=== PATIENT | female | born 1990 | race Caucasian/White ===

== ENCOUNTER 2016-06-02 10:12 | Emergency (ER) | payer BC, OTHER ==
[~2016-06-02 10:12] MED LIST: IBUP80TA PO; PERCOCET PO; PRENTAB9 PO; VENTAER INH
[2016-06-02] MEDS ORDERED: IBUPROFEN 800 MG TAB As Ordered ONE (11:02)
--- NOTE | 2016-06-02 11:50 | REP ---
Clinical: Trauma . Technique: AP, lateral, bilateral oblique views. Findings: No acute fracture or dislocation. Skeletal structures and joint spaces are intact and normal. Ankle mortise appears stable. No subcutaneous emphysema or radiodense foreign body. Impression: Normal left ankle radiograph series. Signed by Gabriel Kim MD 06/02/2016 11:42 A
--- NOTE | 2016-06-02 11:51 | REP ---
Clinical: Trauma. Technique: AP, lateral, bilateral oblique and sunrise views left knee . Findings: The osseous structures and joint spaces are intact and normal. There is no evidence for acute fracture or dislocation. No joint effusion is appreciated. Surrounding soft tissues are unremarkable. No subcutaneous emphysema or radiodense foreign body. Impression: Normal examination. No acute fracture or dislocation. Signed by Gabriel Kim MD 06/02/2016 11:42 A
--- NOTE | 2016-06-02 12:17 | EDDOCDS ---
Physician Documentation [facility] Name: Teresita Pettit Age: 26 yrs Sex: Female : 1990 Arrival Date: 06/02/2016 Time: 10:12 Bed TR8 Private MD: Chiara Lawler Disposition: 06/02/16 12:09 Discharged to Home/Self Care. Impression: Sprain of unspecified ligament of left ankle, Sprain of unspecified site of left knee. - Condition is Stable. - Discharge Instructions: Ankle Sprain, Rbys-ju-Abgx, Knee Sprain, Sqra-sb-Kbgn. - Prescriptions for Mobic 7.5 mg Oral Tablet - take 1 tablet by ORAL route once daily take with food; 20 tablet. - Medication Reconciliation, Work Release Form - 5 day, Local Pharmacy Hours form. - Follow up: [facility]; When: 1 - 2 days; Reason: Further diagnostic work-up, Recheck today's complaints, Continuance of care. Follow up: Emergency Department; Reason: Worsening of conditions. - Problem is new. - Symptoms have improved. Historical: - Allergies: no known allergies; - Home Meds: 1. nuvaring daily - PMHx: Asthma; Palpitations; Seasonal Allergies; - PSHx: ; - Social history: Smoking status: Patient states was never smoker of tobacco. No barriers to communication noted, The patient speaks fluent Tajik. - Family history: Not pertinent. - : The pt / caregiver states he / she is not on anticoagulants. Home medication list is obtained from the patient. - Exposure Risk Screening:: None identified. 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 8 in. (172.72 cm) (R); Pain 5/10; 12:06 BP 136 / 97; Pulse 85; Resp 18; Temp 97.7; Pulse Ox 98% on R/A; Pain 3/10; rn1 10:15 Body Mass Index 29.80 (88.90 kg, 172.72 cm) sar1 Procedures: 12:08 Fracture care/splinting: Splint applied to left lateral ankle using Air Cast, applied ef1 by nurse. Examined by me, post splint application: neurovascular intact, 2+ distal pulses palpable, brisk capillary refill noted, Patient tolerated well. MDM: 11:00 Ibuprofen 800 mg PO once ordered. ef1 11:00 Ice Pack ordered. ef1 11:02 Knee, Complete Ordered. EDMS 11:02 Ankle, Complete Ordered. EDMS 11:07 [facility] Payment Agreement was scanned into [employer] and attached to record. jp5 11:07 Financial registration complete. jp5 11:57 Apply Air Cast to Patient. ordered. ef1 11:57 Crutches ordered. ef1 Administered Medications: 11:09 Drug: Ibuprofen 800 mg [ibuprofen 800 mg tablet (1 tabs)] Route: PO; mlb1 12:09 Follow up: Response: No Adverse Reaction ms18 Signatures: Dispatcher [employer] EDSC Pravin Jacobsen RN RN po Radha Rothman PA-C PA-C ef1 Gracie Bryant RN RN ms18 Tom Riley jp5 Gilberto Robledo RN mlb1 The chart was reviewed and I authenticate all verbal orders and agree with the evaluation and treatment provided.Attachments: 11:07 [facility] Payment Agreement jp5 MTDD
--- NOTE | 2016-06-02 12:17 | EDDOCDS ---
Nurse's Notes [facility] Name: Teresita Pettit Age: 26 yrs Sex: Female : 1990 Arrival Date: 06/02/2016 Time: 10:12 Bed TR8 Private MD: Chiara Lawler Diagnosis: Sprain of unspecified ligament of left ankle;Sprain of unspecified site of left knee Presentation: 06/02 10:18 Presenting complaint: Patient states: slipped on ice and twisted left ankle. Adult po Sepsis Screening: The patient does not have new or worsening altered mentation. Patient's respiratory rate is less than 22. Systolic blood pressure is greater than 100. Patient has a qSOFA score of 0- Negative Sepsis Screen. Suicide/Homicide risk assessment- the patient denies having any suicidal and/or homicidal ideations and does not present with any other emotional, behavioral or mental health complaints. Status: Patient is not a human services care specialist or dependent. Transition of care: patient was not received from another setting of care. 10:18 Acuity: AXEL Level 4 po 10:18 Method Of Arrival: Walkin/Carried/Asstd po Triage Assessment: 10:20 General: Appears in no apparent distress, comfortable, Behavior is appropriate for age, po cooperative. Pain: Location: left lateral ankle Pain currently is 5 out of 10 on a pain scale. Quality of pain is described as aching, Is continuous Aggravated by weight bearing. HIV screening NA for this visit Offered previously. Neurological: Level of Consciousness is awake, alert, Oriented to person, place, time. Respiratory: Airway is patent Respiratory effort is even, unlabored. Musculoskeletal: Denies weakness, numbness. 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 nuvaring daily - PMHx: Asthma; Palpitations; Seasonal Allergies; - PSHx: ; - Social history: Smoking status: Patient states was never smoker of tobacco. No barriers to communication noted, The patient speaks fluent Macanese. - Family history: Not pertinent. - : The pt / caregiver states he / she is not on anticoagulants. Home medication list is obtained from the patient. - Exposure Risk Screening:: None identified. Screenin:14 Screening information is obtained from the patient. Fall risk: No risks identified. ms18 Assistance ADL's: requires no assistance with activities of daily living. Abuse/DV Screen: The patient / caregiver reports he/she is: not in a situation that causes fear, pain or injury. Nutritional screening: No deficits noted. Advance Directives: There is no living will. home support is adequate. Assessment: 12:14 General: Appears in no apparent distress, comfortable, well nourished, well groomed, ms18 Behavior is appropriate for age, cooperative, pleasant. Pain: Location: left knee and anterior aspect of left ankle Pain currently is 3 out of 10 on a pain scale. Neurological: No deficits noted. Respiratory: Airway is patent Respiratory effort is even, unlabored. Derm: Skin is pink, warm & dry. Vital Signs: 10:15 BP 147 / 88; Pulse 84; Resp 18; Temp 96.7(O); Pulse Ox 99% on R/A; Weight 88.9 kg (R); sar1 Height 5 ft. 8 in. (172.72 cm) (R); Pain 5/10; 12:06 BP 136 / 97; Pulse 85; Resp 18; Temp 97.7; Pulse Ox 98% on R/A; Pain 3/10; rn1 10:15 Body Mass Index 29.80 (88.90 kg, 172.72 cm) [facility] Vitals: 10:15 Log In Time: June 02, 2016 at 10:15. [facility] ED Course: 10:13 Patient visited by Carley Bliss, Emt [facility]. sar1 10:13 Patient moved to Waiting sar1 10:14 Chiara Lawler DO is Private Physician. sar1 10:16 Patient moved to Pre RCE sar1 10:20 Triage Initiated po 10:20 Arm band placed on right wrist. Patient placed in waiting room. Family accompanied po patient. 10:23 Patient visited by Pravin Jacobsen RN. po 10:32 Patient moved to Triage 2 mlb1 10:42 Radha Rothman PA-C is PHCP. ef1 10:42 Sissy Leslie MD is Attending Physician. ef1 10:42 Patient visited by Radha Rothman PA-C. ef1 11:07 [facility] Payment Agreement was scanned into [email or web address] and attached to record. jp5 11:09 Patient moved to TR2 mlb1 11:26 Patient visited by Radha Rothman PA-C. ef1 11:56 Patient visited by Radha Rothman PA-C. ef1 11:58 Patient moved to PR1 / 25 ms18 12:08 Orthopaedics, [facility] is Referral Physician. ef1 12:14 Patient moved to TR8 ms18 12:14 The patient / caregiver is instructed regarding the plan of care and ED course. ms18 Accompanied by Family Member, Patient has correct armband on for positive identification. Property :Personal belongings accompany Pt. 12:14 No IV's were initiated during this patient's visit. No procedures done that require ms18 assistance. 12:14 Air stirrup applied to left ankle Patient with positive distal sensation and brisk ms18 distal capillary refill after application. 12:16 Ankle, Complete Returned. EDMS 12:17 Knee, Complete Returned. EDMS Administered Medications: 11:09 Drug: Ibuprofen 800 mg [ibuprofen 800 mg tablet (1 tabs)] Route: PO; mlb1 12:09 Follow up: Response: No Adverse Reaction ms18 Order Results: Radiology Order: Knee, Complete Test: Knee, Complete REASON FOR EXAMINATION: Trauma; Clinical: Trauma.; ; Technique: AP, lateral, bilateral oblique and sunrise views left knee .; ; Findings: The osseous structures and joint spaces are intact and normal. There; is no evidence for acute fracture or dislocation. No joint effusion is; appreciated. Surrounding soft tissues are unremarkable. No subcutaneous; emphysema or radiodense foreign body.; ; Impression:; Normal examination. No acute fracture or dislocation.; ; ; Signed by; Gabriel Kim MD 06/02/2016 11:42 A; Radiology Order: Ankle, Complete Test: Ankle, Complete REASON FOR EXAMINATION: Trauma; Clinical: Trauma .; ; Technique: AP, lateral, bilateral oblique views.; ; Findings: No acute fracture or dislocation. Skeletal structures and joint; spaces are intact and normal. Ankle mortise appears stable. No subcutaneous; emphysema or radiodense foreign body.; ; Impression:; Normal left ankle radiograph series.; ; ; Signed by; Gabriel Kim MD 06/02/2016 11:42 A; Outcome: 12:09 Discharge ordered by Provider. ef1 12:14 Discharge Assessment: Patient awake, alert and oriented x 3. No cognitive and/or ms18 functional deficits noted. Patient verbalized understanding of disposition instructions. patient administered narcotics - no. The following High Risk Discharge criteria are identified: None. Discharged to home ambulatory, with crutches, with family. Condition: good Condition: stable Condition: improved. Discharge instructions given to patient, Instructed on discharge instructions, follow up and referral plans. medication usage, Rest, Ice, Compression and Elevation. crutch walking, Demonstrated understanding of instructions, crutch walking, medications, Pt was receptive of discharge instructions/ teaching. Prescriptions given X 1, Work note provided to patient. No special radiology studies were completed. 12:17 Patient left the ED. ms18 Signatures: Dispatcher [employer] EDMS Pravin Jacobsen,RN RN Gilberto Davila RN RN mlb1 Radha Rothman, PA-C PALd efGracie Jordan,RN RN ms18 Carley Bliss, [facility] sar1 Gurpreet, Michele rn1 Tom Riley jp5 KAT
--- NOTE | 2016-06-04 13:17 | EDDOCDS ---
Physician Documentation [facility] Name: Teresita Pettit Age: 26 yrs Sex: Female : 1990 Arrival Date: 06/02/2016 Time: 10:12 Bed TR8 Private MD: Chiara Lawler Disposition: 06/02/16 12:09 Discharged to Home/Self Care. Impression: Sprain of unspecified ligament of left ankle, Sprain of unspecified site of left knee. - Condition is Stable. - Discharge Instructions: Ankle Sprain, Ldye-kr-Ohvs, Knee Sprain, Widd-va-Aivk. - Prescriptions for Mobic 7.5 mg Oral Tablet - take 1 tablet by ORAL route once daily take with food; 20 tablet. - Medication Reconciliation, Work Release Form - 5 day, Local Pharmacy Hours form. - Follow up: [facility]; When: 1 - 2 days; Reason: Further diagnostic work-up, Recheck today's complaints, Continuance of care. Follow up: Emergency Department; Reason: Worsening of conditions. - Problem is new. - Symptoms have improved. Historical: - Allergies: no known allergies; - Home Meds: 1. nuvaring daily - PMHx: Asthma; Palpitations; Seasonal Allergies; - PSHx: ; - Social history: Smoking status: Patient states was never smoker of tobacco. No barriers to communication noted, The patient speaks fluent Montserratian. - Family history: Not pertinent. - : The pt / caregiver states he / she is not on anticoagulants. Home medication list is obtained from the patient. - Exposure Risk Screening:: None identified. 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 8 in. (172.72 cm) (R); Pain 5/10; 12:06 BP 136 / 97; Pulse 85; Resp 18; Temp 97.7; Pulse Ox 98% on R/A; Pain 3/10; rn1 10:15 Body Mass Index 29.80 (88.90 kg, 172.72 cm) sar1 Procedures: 12:08 Fracture care/splinting: Splint applied to left lateral ankle using Air Cast, applied ef1 by nurse. Examined by me, post splint application: neurovascular intact, 2+ distal pulses palpable, brisk capillary refill noted, Patient tolerated well. MDM: 11:00 Ibuprofen 800 mg PO once ordered. ef1 11:00 Ice Pack ordered. ef1 11:02 Knee, Complete Ordered. EDMS 11:02 Ankle, Complete Ordered. EDMS 11:07 [facility] Payment Agreement was scanned into [employer] and attached to record. jp5 11:07 Financial registration complete. jp5 11:57 Apply Air Cast to Patient. ordered. ef1 11:57 Crutches ordered. ef1 17:10 T-Sheet-- Draft Copy was scanned into [employer] and attached to record. klr 06/03 11:35 Radiology Report was scanned into [employer] and attached to record. gb Administered Medications: 06/02 11:09 Drug: Ibuprofen 800 mg [ibuprofen 800 mg tablet (1 tabs)] Route: PO; mlb1 12:09 Follow up: Response: No Adverse Reaction ms18 Signatures: Dispatcher [employer] EDPravin Chand,RN RN po Velia Alaniz, Reg Reg gb Radha Rothman, PABalajiC PALd ef1 Gracie Bryant,RN RN ms18 Tom Riley jp5 Chelsea Linares Michael B RN mlb1 The chart was reviewed and I authenticate all verbal orders and agree with the evaluation and treatment provided.Attachments: : [facility] Payment Agreement jp5 17:10 T-Sheet-- Draft Copy klr Chart Complete MTDD
--- NOTE | 2016-06-04 13:17 | EDDOCDS ---
Physician Documentation [facility] Name: Teresita Pettit Age: 26 yrs Sex: Female : 1990 Arrival Date: 06/02/2016 Time: 10:12 Bed TR8 Private MD: Chiara Lawler Disposition: 06/02/16 12:09 Discharged to Home/Self Care. Impression: Sprain of unspecified ligament of left ankle, Sprain of unspecified site of left knee. - Condition is Stable. - Discharge Instructions: Ankle Sprain, Hryo-bs-Vejw, Knee Sprain, Uvtp-hf-Qdle. - Prescriptions for Mobic 7.5 mg Oral Tablet - take 1 tablet by ORAL route once daily take with food; 20 tablet. - Medication Reconciliation, Work Release Form - 5 day, Local Pharmacy Hours form. - Follow up: [facility]; When: 1 - 2 days; Reason: Further diagnostic work-up, Recheck today's complaints, Continuance of care. Follow up: Emergency Department; Reason: Worsening of conditions. - Problem is new. - Symptoms have improved. Historical: - Allergies: no known allergies; - Home Meds: 1. nuvaring daily - PMHx: Asthma; Palpitations; Seasonal Allergies; - PSHx: ; - Social history: Smoking status: Patient states was never smoker of tobacco. No barriers to communication noted, The patient speaks fluent Moldovan. - Family history: Not pertinent. - : The pt / caregiver states he / she is not on anticoagulants. Home medication list is obtained from the patient. - Exposure Risk Screening:: None identified. 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 8 in. (172.72 cm) (R); Pain 5/10; 12:06 BP 136 / 97; Pulse 85; Resp 18; Temp 97.7; Pulse Ox 98% on R/A; Pain 3/10; rn1 10:15 Body Mass Index 29.80 (88.90 kg, 172.72 cm) sar1 Procedures: 12:08 Fracture care/splinting: Splint applied to left lateral ankle using Air Cast, applied ef1 by nurse. Examined by me, post splint application: neurovascular intact, 2+ distal pulses palpable, brisk capillary refill noted, Patient tolerated well. MDM: 11:00 Ibuprofen 800 mg PO once ordered. ef1 11:00 Ice Pack ordered. ef1 11:02 Knee, Complete Ordered. EDMS 11:02 Ankle, Complete Ordered. EDMS 11:07 [facility] Payment Agreement was scanned into [email or web address] and attached to record. jp5 11:07 Financial registration complete. jp5 11:57 Apply Air Cast to Patient. ordered. ef1 11:57 Crutches ordered. ef1 17:10 T-Sheet-- Draft Copy was scanned into [email or web address] and attached to record. klr 06/03 11:35 Radiology Report was scanned into [email or web address] and attached to record. gb Administered Medications: 06/02 11:09 Drug: Ibuprofen 800 mg [ibuprofen 800 mg tablet (1 tabs)] Route: PO; mlb1 12:09 Follow up: Response: No Adverse Reaction ms18 Signatures: Dispatcher [employer] EDPravin Chand,RN RN po Velia Alaniz, Reg Reg gb Radha Rothman, PABalajiC PALd ef1 Gracie Bryant,RN RN ms18 Tom Riley jp5 Chelsea Linares Michael B RN mlb1 The chart was reviewed and I authenticate all verbal orders and agree with the evaluation and treatment provided.Attachments: : [facility] Payment Agreement jp5 17:10 T-Sheet-- Draft Copy klr Chart Complete MTDD
--- NOTE | 2016-06-04 13:17 | EDDOCDS ---
Nurse's Notes [facility] Name: Teresita Pettit Age: 26 yrs Sex: Female : 1990 Arrival Date: 06/02/2016 Time: 10:12 Bed TR8 Private MD: Chiara Lawler Diagnosis: Sprain of unspecified ligament of left ankle;Sprain of unspecified site of left knee Presentation: 06/02 10:18 Presenting complaint: Patient states: slipped on ice and twisted left ankle. Adult po Sepsis Screening: The patient does not have new or worsening altered mentation. Patient's respiratory rate is less than 22. Systolic blood pressure is greater than 100. Patient has a qSOFA score of 0- Negative Sepsis Screen. Suicide/Homicide risk assessment- the patient denies having any suicidal and/or homicidal ideations and does not present with any other emotional, behavioral or mental health complaints. Status: Patient is not a business services analyst or dependent. Transition of care: patient was not received from another setting of care. 10:18 Acuity: AXEL Level 4 po 10:18 Method Of Arrival: Walkin/Carried/Asstd po Triage Assessment: 10:20 General: Appears in no apparent distress, comfortable, Behavior is appropriate for age, po cooperative. Pain: Location: left lateral ankle Pain currently is 5 out of 10 on a pain scale. Quality of pain is described as aching, Is continuous Aggravated by weight bearing. HIV screening NA for this visit Offered previously. Neurological: Level of Consciousness is awake, alert, Oriented to person, place, time. Respiratory: Airway is patent Respiratory effort is even, unlabored. Musculoskeletal: Denies weakness, numbness. MANAGER DIGITAL AD OPERATIONS: 10:20 LMP 05/07/2016 po Historical: - Allergies: no known allergies; - Home Meds: 1. nuvaring daily - PMHx: Asthma; Palpitations; Seasonal Allergies; - PSHx: ; - Social history: Smoking status: Patient states was never smoker of tobacco. No barriers to communication noted, The patient speaks fluent [place]. - Family history: Not pertinent. - : The pt / caregiver states he / she is not on anticoagulants. Home medication list is obtained from the patient. - Exposure Risk Screening:: None identified. Screenin:14 Screening information is obtained from the patient. Fall risk: No risks identified. ms18 Assistance ADL's: requires no assistance with activities of daily living. Abuse/DV Screen: The patient / caregiver reports he/she is: not in a situation that causes fear, pain or injury. Nutritional screening: No deficits noted. Advance Directives: There is no living will. home support is adequate. Assessment: 12:14 General: Appears in no apparent distress, comfortable, well nourished, well groomed, ms18 Behavior is appropriate for age, cooperative, pleasant. Pain: Location: left knee and anterior aspect of left ankle Pain currently is 3 out of 10 on a pain scale. Neurological: No deficits noted. Respiratory: Airway is patent Respiratory effort is even, unlabored. Derm: Skin is pink, warm & dry. Vital Signs: 10:15 BP 147 / 88; Pulse 84; Resp 18; Temp 96.7(O); Pulse Ox 99% on R/A; Weight 88.9 kg (R); sar1 Height 5 ft. 8 in. (172.72 cm) (R); Pain 5/10; 12:06 BP 136 / 97; Pulse 85; Resp 18; Temp 97.7; Pulse Ox 98% on R/A; Pain 3/10; rn1 10:15 Body Mass Index 29.80 (88.90 kg, 172.72 cm) [facility] Vitals: 10:15 Log In Time: June 02, 2016 at 10:15. [facility] ED Course: 10:13 Patient visited by Carley Bliss, Aircraft Restorer. sar1 10:13 Patient moved to Waiting sar1 10:14 Chiara Lawler DO is Private Physician. sar1 10:16 Patient moved to Pre RCE sar1 10:20 Triage Initiated po 10:20 Arm band placed on right wrist. Patient placed in waiting room. Family accompanied po patient. 10:23 Patient visited by Pravin Jacobsen RN. po 10:32 Patient moved to Triage 2 mlb1 10:42 Radha Rothman PA-C is PHCP. ef1 10:42 Sissy Leslie MD is Attending Physician. ef1 10:42 Patient visited by Radha Rothman PA-C. ef1 11:07 [facility] Payment Agreement was scanned into nChannel and attached to record. jp5 11:09 Patient moved to TR2 mlb1 11:26 Patient visited by Radha Rothman PA-C. ef1 11:56 Patient visited by Radha Rothman PA-C. ef1 11:58 Patient moved to PR1 / 25 ms18 12:08 Orthopaedics, [facility] is Referral Physician. ef1 12:14 Patient moved to TR8 ms18 12:14 The patient / caregiver is instructed regarding the plan of care and ED course. ms18 Accompanied by Family Member, Patient has correct armband on for positive identification. Property :Personal belongings accompany Pt. 12:14 No IV's were initiated during this patient's visit. No procedures done that require ms18 assistance. 12:14 Air stirrup applied to left ankle Patient with positive distal sensation and brisk ms18 distal capillary refill after application. 12:16 Ankle, Complete Returned. EDMS 12:17 Knee, Complete Returned. EDMS 17:10 T-Sheet-- Draft Copy was scanned into nChannel and attached to record. klr 06/03 11:35 Radiology Report was scanned into nChannel and attached to record. gb Administered Medications: 06/02 11:09 Drug: Ibuprofen 800 mg [ibuprofen 800 mg tablet (1 tabs)] Route: PO; mlb1 12:09 Follow up: Response: No Adverse Reaction ms18 Order Results: Radiology Order: Knee, Complete Test: Knee, Complete REASON FOR EXAMINATION: Trauma; Clinical: Trauma.; ; Technique: AP, lateral, bilateral oblique and sunrise views left knee .; ; Findings: The osseous structures and joint spaces are intact and normal. There; is no evidence for acute fracture or dislocation. No joint effusion is; appreciated. Surrounding soft tissues are unremarkable. No subcutaneous; emphysema or radiodense foreign body.; ; Impression:; Normal examination. No acute fracture or dislocation.; ; ; Signed by; Gabriel Kim MD 06/02/2016 11:42 A; Radiology Order: Ankle, Complete Test: Ankle, Complete REASON FOR EXAMINATION: Trauma; Clinical: Trauma .; ; Technique: AP, lateral, bilateral oblique views.; ; Findings: No acute fracture or dislocation. Skeletal structures and joint; spaces are intact and normal. Ankle mortise appears stable. No subcutaneous; emphysema or radiodense foreign body.; ; Impression:; Normal left ankle radiograph series.; ; ; Signed by; Gabriel Kim MD 06/02/2016 11:42 A; Outcome: 12:09 Discharge ordered by Provider. ef1 12:14 Discharge Assessment: Patient awake, alert and oriented x 3. No cognitive and/or ms18 functional deficits noted. Patient verbalized understanding of disposition instructions. patient administered narcotics - no. The following High Risk Discharge criteria are identified: None. Discharged to home ambulatory, with crutches, with family. Condition: good Condition: stable Condition: improved. Discharge instructions given to patient, Instructed on discharge instructions, follow up and referral plans. medication usage, Rest, Ice, Compression and Elevation. crutch walking, Demonstrated understanding of instructions, crutch walking, medications, Pt was receptive of discharge instructions/ teaching. Prescriptions given X 1, Work note provided to patient. No special radiology studies were completed. 12:17 Patient left the ED. ms18 Signatures: Dispatcher [employer] EDMS Pravin Jacobsen,RN RN Velia Samson, Reg Reg Gilberto Robledo RN RN mlb1 Radha Rothman, PA-C PA-C ef1 Gracie Bryant,RN RN ms18 Carley Bliss, Aircraft Restorer Unit sar1 Gurpreet, Michele rn1 Tom Riley Kathie klr Chart Complete [email or web address]
== END 2016-06-02 12:17 | disposition home or self-care (01) ==
LOC: M ED 10:12
DX: S93.402A Sprain of unspecified ligament of left ankle, initial encounter (principal); S83.92XA Sprain of unspecified site of left knee, initial encounter; W19.XXXA Unspecified fall, initial encounter; Y92.019 Unspecified place in single-family (private) house as the place of occurrence of the external cause; Y93.9 Activity, unspecified; Y99.9 Unspecified external cause status; J45.909 Unspecified asthma, uncomplicated; R00.2 Palpitations; Z79.3 Long term (current) use of hormonal contraceptives

== ENCOUNTER → 2016-06-20 | Outpatient (REF) | payer OTHER | LOC: M LAB REF 13:37 | PROVIDERS: ATTEND Obstetrics & Gynecology | DX: Z12.4 Encounter for screening for malignant neoplasm of cervix (principal) ==

== ENCOUNTER → 2016-07-16 | Outpatient (REF) | payer OTHER | LOC: M LAB REF 16:17 | PROVIDERS: ATTEND Nurse Practitioner Family | DX: R50.9 Fever, unspecified (principal) ==

== ENCOUNTER → 2016-07-31 | Outpatient (CLI) | payer BC, OTHER ==
--- NOTE | 2016-08-01 07:18 | REP ---
PELVIC ULTRASOUND: 07/31/2016. Clinical history: Right lower quadrant and pelvic pain. No comparison study. Findings: Transabdominal imaging using the bladder as an acoustic window shows uterus anteverted and measures 8.4 x 4.4 x 4.3 cm. It has smooth contour. There is homogeneous echotexture of the myometrium. Endometrial stripe has a thickness of up to 12.4 mm and normal appearance. No fluid in the endometrial cavity or endocervical canal. There is no fluid in the cul-de-sac. Both ovaries are seen with the right 2.8 x 1.5 x 2.4 cm and the left 2.7 x 2.1 x 1 cm. Neither ovary shows solid or cystic mass nor adjacent free fluid. Doppler tracing show resistive index for the right ovary 0.50 and on the left 0.55. Impression: 1. Uterus, endometrial stripe and ovaries unremarkable. No pelvic free fluid, adnexal mass or torsion evident. Signed by Jd Ortiz MD 08/01/2016 04:20 P
--- NOTE | 2016-08-01 09:41 | REP ---
Focused left breast sonography: History: Lump in the left breast. Comparison left breast sonography June 21, 2015. Findings: The left breast is scanned from 6 o'clock to 8 o'clock in the area previously evaluated sonographically. Heterogeneous fibroglandular background echotexture is seen. No mass lesion or cyst is observed. A normal appearing 1.1 x 0.3 x 0.7 cm lymph node is identified at approximately 6 o'clock. No other abnormality. Impression: BIRADS category II benign focused left breast sonography. Clinical follow-up is advised. This negative report should not dissuade one from biopsy of a palpable lump depending on its clinical characteristics. Signed by Jurgen Max MD 08/01/2016 10:14 A
== END ==
LOC: M RAD 16:57
PROVIDERS: ATTEND Obstetrics & Gynecology
DX: N83.209 Unspecified ovarian cyst, unspecified side (principal)

== ENCOUNTER → 2016-09-13 | Outpatient (CLI) | payer BC, OTHER ==
--- NOTE | 2016-09-13 10:25 | REP ---
ULTRASOUND OF ABDOMINAL AORTA: Real-time sonographic evaluation of the abdominal aorta performed. There is no sonographic evidence of abdominal aortic aneurysm, maximum AP diameter of the abdominal aorta at the level of the diaphragms is 2.0 cm, level of the renal artery is 1.8 cm, mid aspect 1.6 cm and distally 1.4 cm. Common iliac arteries are normal in caliber. IMPRESSION: No sonographic evidence of abdominal aortic aneurysm. Signed by Lei Leblanc MD 09/13/2016 03:26 P
== END ==
LOC: M RAD 08:23
PROVIDERS: ATTEND Nurse Practitioner Family
DX: R00.0 Tachycardia, unspecified (principal)

== ENCOUNTER → 2017-03-13 | Outpatient (CLI) | payer BC, OTHER ==
--- NOTE | 2017-03-13 17:17 | REP ---
Clinical: Pain. Technique: AP, lateral, bilateral oblique and sunrise views of the left knee. Findings: Osseous structures, joint spaces, and surrounding soft tissues appear normal for age. No significant arthritic or congenital abnormalities are appreciated. No acute fracture or dislocation. No obvious effusion. Impression: Relatively normal left knee radiograph series. Signed by Gabriel Kim MD 03/13/2017 05:07 P
--- NOTE | 2017-03-13 17:31 | REP ---
Clinical: Pain. Technique: Neutral and frog lateral views of the left hip. Findings: Osseous structures, joint spaces, and surrounding soft tissues are relatively normal. No acute fracture or dislocation identified. No significant periarticular calcifications appreciated. Impression: Normal left hip radiographs. Signed by Gabriel Kim MD 03/13/2017 05:22 P
== END ==
LOC: M RAD 10:21
PROVIDERS: ATTEND Nurse Practitioner Family
DX: M25.559 Pain in unspecified hip (principal); M25.562 Pain in left knee

== ENCOUNTER → 2017-04-21 | Outpatient (CLI) | payer BC, OTHER ==
--- NOTE | 2017-04-21 10:03 | REP ---
MRI LEFT KNEE: TECHNIQUE: Axial proton density fat saturation, sagittal proton density T2 STIR, water excitation, coronal proton density, proton density fat saturation. Menisci appear intact. The cruciate and collateral ligaments are intact. The extensor mechanism is intact. Cartilaginous surfaces are smooth and relatively normal in thickness with no osteochondral defect. There is no bone marrow edema or occult fracture. There is a normal amount of joint fluid. There is no evidence of a popliteal cyst. IMPRESSION: Essentially negative MRI left knee. Signed by Lei Leblanc MD 04/21/2017 10:31 A
== END ==
LOC: M RAD 08:38
PROVIDERS: ATTEND Orthopaedic Surgery
DX: M25.562 Pain in left knee (principal)

== ENCOUNTER → 2017-08-12 | Outpatient (CLI) | payer BC, OTHER ==
[2017-08-12 13:09] LABS: BASO % 0.3 % (0.0-1.0); EOS # 0.1 10^3/uL (0.0-0.50); HEMATOCRIT 39.3 % (36.0-47.0); HEMOGLOBIN 13.4 g/dl (12.0-16.0); IMMATURE GRANULOCYTE % 0.2 % (0-3.0); LYMPH # 1.5 10^3/uL (1.5-6.5); MEAN CORPUSCULAR HEMOGLOBIN 27.2 pg (27.0-33.0); MEAN CORPUSCULAR HGB CONC 34.1 g/dl (32.0-36.5); MEAN CORPUSCULAR VOLUME 79.9 fl (80.0-96.0); MONO # 0.6 10^3/uL (0.0-0.8); MONO % 8.9 % (0.0-5.0); NEUTROPHILS # 3.9 10^3/uL (1.8-7.7); NEUTROPHILS % 63.6 % (36.0-66.0); PLATELET COUNT, AUTOMATED 297 10^3/uL (150-450); RED BLOOD COUNT 4.92 10^6/uL (4.00-5.40); RED CELL DISTRIBUTION WIDTH 13.1 % (11.5-14.5); WHITE BLOOD COUNT 6.2 10^3/uL (4.0-10.0)
[2017-08-12 14:49] LABS: CHLAMYDIA DNA AMPLIFICATION NEGATIVE (NEGATIVE); GC DNA AMPLIFICATION NEGATIVE (NEGATIVE)
[2017-08-13 09:26] LABS: RUBELLA IgG QUALITATIVE IMMUNE (IMMUNE)
[2017-08-13 09:37] LABS: HBsAg Prenatal NEGATIVE (NEGATIVE)
[2017-08-13 09:56] LABS: HEPATITIS C VIRUS ABY INDEX 0.1 INDEX (<0.8)
[2017-08-13 09:56] LABS: HIV 1&2 SCREEN CENTAUR NEGATIVE (NEGATIVE)
== END ==
LOC: M SMT 09:03
DX: Z36.89 Encounter for other specified antenatal screening (principal); Z3A.09 9 weeks gestation of pregnancy
CPT/HCPCS: 86762

== ENCOUNTER → 2017-10-02 | Outpatient (CLI) | payer BC, OTHER | LOC: M RAD 15:30 | DX: Z34.82 Encounter for supervision of other normal pregnancy, second trimester (principal) | CPT/HCPCS: 76811 ==

== ENCOUNTER → 2017-10-17 | Outpatient (CLI) | payer BC, OTHER | LOC: M RAD 08:44 | DX: Z34.82 Encounter for supervision of other normal pregnancy, second trimester (principal) | CPT/HCPCS: 76816 ==

== ENCOUNTER → 2017-10-31 | Outpatient (CLI) | payer BC, OTHER | LOC: M RAD 06:56 | DX: O34.211 Maternal care for low transverse scar from previous cesarean delivery (principal) ==

== ENCOUNTER → 2017-11-27 | Outpatient (CLI) | payer BC, OTHER ==
[2017-11-27 10:46] LABS: HEMATOCRIT 36.3 % (36.0-47.0); HEMOGLOBIN 12.2 g/dl (12.0-15.5); MEAN CORPUSCULAR HEMOGLOBIN 28.2 pg (27.0-33.0); MEAN CORPUSCULAR HGB CONC 33.6 g/dl (32.0-36.5); MEAN CORPUSCULAR VOLUME 83.8 fl (80.0-96.0); PLATELET COUNT, AUTOMATED 261 10^3/uL (150-450); RED BLOOD COUNT 4.33 10^6/uL (4.00-5.40); RED CELL DISTRIBUTION WIDTH 13.6 % (11.5-14.5); WHITE BLOOD COUNT 8.2 10^3/uL (4.0-10.0)
[2017-11-27 11:13] LABS: GLUCOSE CHALLENGE TEST 1 HOUR 99 MG/DL (LESS THAN 140)
== END ==
LOC: M SMT 08:03
DX: Z34.82 Encounter for supervision of other normal pregnancy, second trimester (principal); Z36.89 Encounter for other specified antenatal screening
CPT/HCPCS: 82950

== ENCOUNTER 2018-01-09 18:35 | Outpatient (CLI) | payer BC, OTHER | END 2018-01-09 20:40 | disposition home or self-care (01) | LOC: M LDO 18:35 | DX: Z04.3 Encounter for examination and observation following other accident (principal); W19.XXXA Unspecified fall, initial encounter; Y93.H2 Activity, gardening and landscaping; Y92.89 Other specified places as the place of occurrence of the external cause; Y99.8 Other external cause status; Z3A.32 32 weeks gestation of pregnancy | CPT/HCPCS: 59025 ==

== ENCOUNTER 2018-01-16 22:18 | Outpatient (CLI) | payer BC, OTHER ==
[2018-01-17 00:21] LABS: HEMATOCRIT 34.5 % (36.0-47.0); HEMOGLOBIN 11.6 g/dl (12.0-15.5); MEAN CORPUSCULAR HEMOGLOBIN 27.3 pg (27.0-33.0); MEAN CORPUSCULAR HGB CONC 33.6 g/dl (32.0-36.5); MEAN CORPUSCULAR VOLUME 81.2 fl (80.0-96.0); PLATELET COUNT, AUTOMATED 266 10^3/uL (150-450); RED BLOOD COUNT 4.25 10^6/uL (4.00-5.40); WHITE BLOOD COUNT 10.3 10^3/uL (4.0-10.0)
== END 2018-01-17 03:15 | disposition home or self-care (01) ==
LOC: M LDO 22:18
DX: O99.89 Other specified diseases and conditions complicating pregnancy, childbirth and the puerperium (principal); Z3A.33 33 weeks gestation of pregnancy; W10.8XXA Fall (on) (from) other stairs and steps, initial encounter
CPT/HCPCS: 76815

== ENCOUNTER → 2018-02-19 | Outpatient (REF) | payer OTHER ==
[2018-02-19 14:09] LABS: HEMATOCRIT 37.3 % (36.0-47.0); HEMOGLOBIN 12.4 g/dl (12.0-15.5); MEAN CORPUSCULAR HEMOGLOBIN 26.8 pg (27.0-33.0); MEAN CORPUSCULAR HGB CONC 33.2 g/dl (32.0-36.5); MEAN CORPUSCULAR VOLUME 80.6 fl (80.0-96.0); PLATELET COUNT, AUTOMATED 259 10^3/uL (150-450); RED BLOOD COUNT 4.63 10^6/uL (4.00-5.40); RED CELL DISTRIBUTION WIDTH 13.9 % (11.5-14.5); WHITE BLOOD COUNT 8.6 10^3/uL (4.0-10.0)
[2018-02-19 14:51] LABS: ALT/SGPT 15 U/L (12-78); AST/SGOT 17 U/L (7-37); BILIRUBIN,TOTAL 0.4 MG/DL (0.2-1.0); CREATININE FOR GFR 0.48 MG/DL (0.55-1.30); GLOMERULAR FILTRATION RATE > 60.0 (>60); LDH LACTATE DEHYDROGENASE 242 U/L (84-246); URIC ACID 3.4 MG/DL (2.6-6.0)
[2018-02-19 15:35] LABS: TOTAL PROTEIN,RANDOM URINE 104.5 MG/DL (0.0-12.0)
== END ==
LOC: M LAB REF 13:17
DX: Z34.83 Encounter for supervision of other normal pregnancy, third trimester (principal)

== ENCOUNTER → 2018-06-23 | Outpatient (CLI) | payer BC, OTHER ==
[~2018-06-23] MED LIST changes: +MAPA500T2 PO; +MOTR200T44 PO; +SING10TA32 PO
--- NOTE | 2018-06-24 07:25 | REP ---
Clinical: Abnormal menstrual cycles and pelvic pain . Technique: Transabdominal pelvic ultrasound followed by transvaginal examination for better evaluation of the endometrium and adnexa with color Doppler evaluation of the ovaries. Findings: Bladder is unremarkable and measures 5.2 x 3.1 x 5.3 cm . Normal anteverted uterus measures 9.8 x 5.0 x 5.7 cm . The endometrial complex measures 4.3 mm thickness. No discrete uterine or endometrial abnormalities are appreciated. Few scattered myometrial calcifications are identified and nonspecific/likely chronic. Bilateral ovaries are normal in appearance and vascularity without evidence for torsion. Right ovary measures 3.3 x 3.3 x 3.4 cm with 2.2 cm dominant follicle ; R I = 0.50 . Left ovary measures 4.2 x 2.6 x 2.3 cm ; R I = 0.46 . No pelvic fluid or adnexal mass lesion . Impression: 1. Myometrial calcifications are nonspecific and likely chronic. 2. Otherwise essentially normal pelvic ultrasound. No torsion. Electronically Signed by Gabriel Kim MD 06/24/2018 07:17 A
== END ==
LOC: M RAD 09:41
PROVIDERS: ATTEND Obstetrics & Gynecology
DX: N92.0 Excessive and frequent menstruation with regular cycle (principal); N85.8 Other specified noninflammatory disorders of uterus

== ENCOUNTER 2018-11-09 12:48 | Emergency (ER) | payer BC, OTHER ==
[~2018-11-09] VITALS: Ht 172.7 cm; Wt 85.9 kg
[~2018-11-09 12:48] MED LIST changes: +OXYC1TAB23 PO; -PERCOCET PO
[2018-11-09 12:49] VITALS: BP 144/87
[2018-11-09] MEDS ORDERED: NUVAMIS2 (12:58)
[2018-11-09] MEDS ORDERED: CLAR10CA3 PO (12:58)
[2018-11-09] MEDS ORDERED: FLUTISP (12:58)
[2018-11-09] MEDS ORDERED: RABIES VACCINE HUMAN 2.5 INTERNATIONAL UNITS/ML VIAL (90675) IM ONE (15:00)
[2018-11-09] MEDS ORDERED: RABIES IMMUNE GLOBULIN 1500 INTERNATIONAL UNIT/5ML VIAL (90375) IM ONE ×2 (15:00→15:15)
[2018-11-09] MEDS ORDERED: RABIES IMMUNE GLOBULIN 300 INTERNATIONAL UNITS/1ML VIAL (90375) IM ONE (15:15)
== END 2018-11-09 16:01 | disposition home or self-care (01) ==
LOC: M ED 12:48
DX: Z23 Encounter for immunization (principal); Z20.3 Contact with and (suspected) exposure to rabies; J30.89 Other allergic rhinitis; Z79.899 Other long term (current) drug therapy; Z79.3 Long term (current) use of hormonal contraceptives

== ENCOUNTER 2018-11-12 17:22 | Emergency (ER) | payer BC, OTHER ==
[~2018-11-12] VITALS: Ht 172.7 cm; Wt 86.4 kg
[~2018-11-12 17:22] MED LIST changes: +CLAR10CA3 PO; +FLUTISP; +NUVAMIS2
[2018-11-12 17:23] VITALS: BP 141/94
[2018-11-12] MEDS ORDERED: RABIES VACCINE HUMAN 2.5 INTERNATIONAL UNITS/ML VIAL (90675) IM ONE (18:00)
== END 2018-11-12 18:22 | disposition home or self-care (01) ==
LOC: M ED 17:22
DX: Z23 Encounter for immunization (principal); Z20.3 Contact with and (suspected) exposure to rabies; J45.909 Unspecified asthma, uncomplicated; Z79.899 Other long term (current) drug therapy

== ENCOUNTER 2018-11-16 09:51 | Emergency (ER) | payer BC, OTHER ==
[~2018-11-16] VITALS: Ht 172.7 cm; Wt 190.0 kg
[2018-11-16 09:52] VITALS: BP 126/83
[2018-11-16] MEDS ORDERED: RABIES VACCINE HUMAN 2.5 INTERNATIONAL UNITS/ML VIAL (90675) IM ONE (11:45)
== END 2018-11-16 12:03 | disposition home or self-care (01) ==
LOC: M ED 09:51
DX: Z23 Encounter for immunization (principal); Z20.3 Contact with and (suspected) exposure to rabies; J45.909 Unspecified asthma, uncomplicated; Z79.899 Other long term (current) drug therapy; Z79.3 Long term (current) use of hormonal contraceptives

== ENCOUNTER 2018-11-25 16:29 | Emergency (ER) | payer BC, OTHER ==
[~2018-11-25] VITALS: Ht 172.7 cm; Wt 88.3 kg
[2018-11-25] MEDS ORDERED: RABIES VACCINE HUMAN 2.5 INTERNATIONAL UNITS/ML VIAL (90675) IM ONE (17:00)
[2018-11-25 17:34] VITALS: BP 141/68
== END 2018-11-25 17:34 | disposition home or self-care (01) ==
LOC: M ED 16:29
DX: Z23 Encounter for immunization (principal); Z20.3 Contact with and (suspected) exposure to rabies; J30.2 Other seasonal allergic rhinitis; Z79.899 Other long term (current) drug therapy

== ENCOUNTER 2019-01-28 04:27 | Observation (INO) | payer BC, OTHER ==
[~2019-01-28] VITALS: Ht 172.7 cm; Wt 88.0 kg
[~2019-01-28 04:27] MED LIST changes: -NUVAMIS2; +NUVAMIS2 PV
[2019-01-28] MEDS ORDERED: SING10TA32 PO (04:31)
[2019-01-28 05:40] LABS: BASO % 0.8 % (0.0-1.0); EOS # 0.3 10^3/uL (0.0-0.50); EOS % 5.7 % (0.0-3.0); HEMATOCRIT 38.2 % (36.0-47.0); HEMOGLOBIN 12.4 g/dl (12.0-15.5); LYMPH # 1.8 10^3/uL (1.5-4.5); LYMPH % 33.8 % (24.0-44.0); MEAN CORPUSCULAR HEMOGLOBIN 26.5 pg (27.0-33.0); MEAN CORPUSCULAR HGB CONC 32.5 g/dl (32.0-36.5); MEAN CORPUSCULAR VOLUME 81.6 fl (80.0-96.0); MONO # 0.6 10^3/uL (0.0-0.8); MONO % 11.5 % (0.0-5.0); NEUTROPHILS # 2.5 10^3/uL (1.8-7.7); PLATELET COUNT, AUTOMATED 282 10^3/uL (150-450); RED BLOOD COUNT 4.68 10^6/uL (4.00-5.40); WHITE BLOOD COUNT 5.2 10^3/uL (4.0-10.0)
[2019-01-28 05:49] LABS: INR 0.92; PROTHROMBIN TIME 12.1 SECONDS (11.8-14.0)
[2019-01-28 05:50] LABS: PARTIAL THROMBOPLASTIN TIME 30.1 SECONDS (25.0-38.4)
[2019-01-28 06:03] LABS: BLOOD UREA NITROGEN 16 MG/DL (7-18); CALCIUM LEVEL 8.4 MG/DL (8.5-10.1); CARBON DIOXIDE LEVEL 28 MEQ/L (21-32); CHLORIDE LEVEL 108 MEQ/L (98-107); CPK CREATINE PHOSPHOKINASE 93 U/L (26-192); CREATININE FOR GFR 0.82 MG/DL (0.55-1.30); GLOMERULAR FILTRATION RATE > 60.0 (>60); GLUCOSE, FASTING 95 MG/DL (70-100); MB/CK RELATIVE INDEX 1.08 (< OR =4); POTASSIUM SERUM 3.5 MEQ/L (3.5-5.1); SODIUM LEVEL 141 MEQ/L (136-145); TROPONIN I < 0.02 NG/ML (< 0.10)
--- NOTE | 2019-01-28 06:03 | REPVR ---
EXAM: CT Head Without Contrast EXAM DATE/TIME: 01/28/2019 5:15 AM CLINICAL HISTORY: 28 years old, female; Numbness / parasthesia; Left; Additional info: CVA - nursing interventions must not delay CT TECHNIQUE: Imaging protocol: Computed tomography of the head without contrast. Radiation optimization: All CT scans at this facility use at least one of these dose optimization techniques: automated exposure control; mA and/or kV adjustment per patient size (includes targeted exams where dose is matched to clinical indication); or iterative reconstruction. COMPARISON: No relevant prior studies available. FINDINGS: Brain: The cortical/white matter interfaces are preserved throughout the brain. There is no evidence of intracranial hemorrhage. Ventricles: The ventricular system is normal in size and configuration. Bones/joints: No acute fractures of the skull are identified. Sinuses: The visualized paranasal sinuses are clear. Mastoid air cells: The mastoid air cells are clear. Soft tissues: Unremarkable. IMPRESSION: No evidence of acute infarct, hemorrhage, or mass lesion. Electronically signed by: Blaire Aguilar On 01/28/2019 06:03:07 AM
--- NOTE | 2019-01-28 07:08 | REP ---
Clinical: Acute cerebrovascular accident . Comparison: None . Findings: The mediastinum and cardiac silhouette are stable and within normal limits for portable technique. The lung trevino are clear without acute consolidation, effusion, or pneumothorax. Skeletal structures are intact. Impression: No acute cardiopulmonary process appreciated. Electronically Signed by Gabriel Kim MD 01/28/2019 07:00 A
[2019-01-28] MEDS ORDERED: PROAAER10 INH (08:33)
[2019-01-28] MEDS ORDERED: IBUP200C29 PO (08:33)
[2019-01-28] MEDS ORDERED: ACETAMINOPHEN TAB 650MG DOSE (2X325MG) PO PRN (08:45)
[2019-01-28] MEDS: ENOXAPARIN 40 MG/0.4 ML SYRINGE (J1650) SC SCH (09:00)
[2019-01-28 09:12] LABS: C REACTIVE PROTEIN QUANTITATIV < 0.30 MG/DL (0.00-0.30); RHEUMATOID FACTOR QUANT < 10.0 IU/ML (<15.0)
[2019-01-28 09:31] LABS: ERYTHROCYTE SEDIMENTATION RATE 5 mm/hr (0-20)
[2019-01-28 11:12] VITALS: BP 126/78
--- NOTE | 2019-01-28 11:23 | REP ---
MRI of the brain without contrast Indication: Left upper extremity weakness, paresthesias. Comparison: CT head of the same date. Technique: MRI of the brain was performed without contrast utilizing sagittal T1 FLAIR, and axial DWI, T1, T2, GRE, and FLAIR imaging. Findings: There is no restricted diffusion to suggest acute ischemia or infarction. The ventricles and sulci are symmetric. There is no intra- or extra-axial fluid collection. There is no mass effect. There is no midline shift or basal cistern effacement. The visualized flow voids are preserved. The visualized paranasal sinuses and mastoid air cells are clear. Impression: No acute ischemia or infarction. No acute intracranial abnormality. Electronically Signed by Rickey Bal MD 01/28/2019 11:14 A
--- NOTE | 2019-01-28 11:28 | REP ---
MRA of the brain without contrast Indication: Left upper extremity weakness, paresthesia. Comparison: None Technique: MR angiogram of the brain was performed without contrast. MIP images of the vessels were obtained including double and spin MIP imaging. Findings: There is antegrade flow within the distal ICAs and proximal MCAs same ACAs as well as the distal vertebral arteries, basilar artery and proximal sales service representative. Posterior communicating arteries are patent. There is no cerebrovascular occlusion or aneurysmal formation. Impression: No cerebrovascular occlusion or aneurysmal formation. Electronically Signed by Rickey Bal MD 01/28/2019 11:19 A
--- NOTE | 2019-01-28 11:36 | HPEPDOC ---
[facility] Medical History & Physical Date of Admission Jan 28, 2019 Date of Service: Jan 28, 2019 History and Physical CHIEF COMPLAINT: L. arm weakness HISTORY OF PRESENT ILLNESS: Patient is a 28-year-old female with past medical history of asthma presents to ER with complaints of left arm weakness since last night. Patient was noted to go to bed at 11 PM with no issues and when woke up at 3 AM noted to be severely weak in the left arm with numbness to certain areas of the arm. She denies any previous history of similar occurrence. States that the numbness is spared in the forearm as well as the first 4 digits in the left hand. She denies any recent URI symptoms or any other complaints including chest pain, SOB, dizz iness, blurry vision, fever, chills. PAST MEDICAL HISTORY: Refer to [facility] PAST SURGICAL HISTORY: C section SOCIAL HISTORY: Social/Rare alcohol use. Denies tobacco illicit drug use. FAMILY HISTORY: Family with PVCs/some arrythmias ALLERGIES: Please see below. REVIEW OF SYSTEMS: 10 point review of system negative except as stated in [facility] HOME MEDICATIONS: Please see below. PHYSICAL EXAMINATION: General: No acute distress, Alert Eyes: Normal sclera, EOMI, WAQAS HENT: Atraumatic, neck supple, moist mucous membranes Cardiovascular: Normal rate, normal rhythm. Pulmonary: Clear to auscultation b/l, no wheezing GI: Soft, nontender, nondistended Skin: Warm and dry Neuro: CN grossly intact. Decrease sensation in upper L. arm as well as thumb and index finger. Strength 3/5 in L. arm, lift against gravity up to about 90 degrees briefly. otherwise 5/5 in all other extremities. Psych: oriented x 3 LABORATORY DATA: See below. IMAGING: CT Head- IMPRESSION: No evidence of acute infarct, hemorrhage, or mass lesion. MRA Brain- Impression: No cerebrovascular occlusion or aneurysmal formation. MRI Brain- Impression: No acute ischemia or infarction. No acute intracranial abnormality. Cervical MRI- Impression: Straightening of cervical lordosis which may be positional or related to muscle spasm. No spinal cord signal abnormality. No disc herniation or significant spinal canal stenosis. MICROBIOLOGY: Please see below. ASSESSMENT AND PLAN: 1. L. arm weakness/numbness - Irregular pattern with sparing of forearm and part of hands, not suggestive of TIA/CVA. - CT head and MRI all without any evidence of acute changes. - Patient is afebrile with no leukocytosis, no neck stiffness/soreness to suggest any infectious etiology. - HIV is negative. f/u Rheum workup, possible autoimmune etiology leading to mononeuritis multiplex. 2. Asthma - not in exacerbation. - resume home neds. Nebs PRN for SOB. Vital Signs Vital Signs Date Time Temp Pulse Resp B/P (MAP) Pulse Ox O2 Delivery O2 Flow Rate FiO2 01/28/19 11:12 98.1 71 16 126/78 (94) 98 01/28/19 09:46 Room Air Laboratory Data Labs 24H Laboratory Tests 2 01/28/19 05:25: HIV Antigen/Antibody Combo Qual NEGATIVE 01/28/19 05:26: Immature Granulocyte % (Auto) 0.2, White Blood Count 5.2, Red Blood Count 4.68, Hemoglobin 12.4, Hematocrit 38.2, Mean Corpuscular Volume 81.6, Mean Corpuscular Hemoglobin 26.5L, Mean Corpuscular Hemoglobin Concent 32.5, Red Cell Distribution Width 14.0, Platelet Count 282, Neutrophils (%) (Auto) 48.0, Lymphocytes (%) (Auto) 33.8, Monocytes (%) (Auto) 11.5H, Eosinophils (%) (Auto) 5.7H, Basophils (%) (Auto) 0.8, Neutrophils # (Auto) 2.5, Lymphocytes # (Auto) 1.8, Monocytes # (Auto) 0.6, Eosinophils # (Auto) 0.3, Basophils # (Auto) 0.0, Nucleated Red Blood Cells % (auto) 0.0, Erythrocyte Sedimentation Rate 5, Prothrombin Time 12.1, Prothromb Time International Ratio 0.92, Activated Partial Thromboplast Time 30.1, Anion Gap 5L, Glomerular Filtration Rate > 60.0, Blood Urea Nitrogen 16, Creatinine 0.82, Sodium Level 141, Potassium Level 3.5, Chloride Level 108H, Carbon Dioxide Level 28, Calcium Level 8.4L, Total Creatine Kinase 93, Creatine Kinase MB 1.0, Creatine Kinase MB Relative Index 1.08, Troponin I < 0.02, C-Reactive Protein, Quantitative < 0.30, Rheumatoid Factor < 10.0 01/28/19 05:34: POC Beta HCG, Quantitative < 5.0 CBC/BMP Laboratory Tests 01/28/19 05:26 Red Blood Count 4.68, Mean Corpuscular Volume 81.6, Mean Corpuscular Hemoglobin 26.5 L, Mean Corpuscular Hemoglobin Concent 32.5, Red Cell Distribution Width 14 .0, Neutrophils (%) (Auto) 48.0, Lymphocytes (%) (Auto) 33.8, Monocytes (%) (Auto) 11.5 H, Eosinophils (%) (Auto) 5.7 H, Basophils (%) (Auto) 0.8, Neutrophils # (Auto) 2.5, Lymphocytes # (Auto) 1.8, Monocytes # (Auto) 0.6, Eosinophils # (Auto) 0.3, Basophils # (Auto) 0.0, Calcium Level 8.4 L, Total Creatine Kinase 93 Home Medications Scheduled Etonogestrel/Ethinyl Estradiol (Nuvaring Vaginal Ring) 1 Each Vag.ring, 1 RING PV ASDIRECTED SKIPPED THIS PAST CYCLE DUE TO IRREGULAR MENSES - CURRENTLY HAS MENSES AND WILL INSERT RING IN ABOUT 5 DAYS Montelukast Sodium (Singulair) 10 Mg Tablet, 10 MG PO QHS Scheduled PRN Albuterol Sulfate (Proair Hfa) 8.5 Gm Hfa.aer.ad, 2 PUFF INH Q6H PRN for SHORTNESS OF BREATH Fluticasone Propionate (Fluticasone Propionate) 16 Gm [place].susp, 2 SPRAY NA DAILY PRN for ALLERGIES Ibuprofen (Ibuprofen) 200 Mg Capsule, 600 MG PO QID PRN for PAIN Loratadine (Claritin) 10 Mg Capsule, 10 MG PO DAILY PRN for ALLERGIES Allergies Coded Allergies: ENVIROMENTAL (Verified Allergy, Unknown, 09/07/10) A-FIB/CHADSVASC A-FIB History Current/History of A-Fib/PAF?: No BRENDEN DESAI MD Jan 28, 2019 11:36
--- NOTE | 2019-01-28 11:39 | REP ---
MRI of the cervical spine without contrast Indication: Left upper extremity weakness, paresthesia. Comparison: None Technique: MRI of the cervical spine was performed utilizing sagittal and T1 FLAIR, STIR, T2 weighted imaging as well as axial T1 and T2-weighted imaging. No intravenous contrast was administered. Findings: There is straightening of cervical lordosis which may be positional or related to muscle spasm. There is normal alignment. Vertebral body heights and intervertebral disc heights are maintained. There is no bone marrow edema. The visualized spinal cord is normal in signal intensity. There is no significant disc herniation, spinal canal stenosis or neural foraminal compromise. The paraspinal soft tissues are within normal limits. Impression: Straightening of cervical lordosis which may be positional or related to muscle spasm. No spinal cord signal abnormality. No disc herniation or significant spinal canal stenosis. Electronically Signed by Rickey Bal MD 01/28/2019 11:30 A
[2019-01-28] MEDS ORDERED: FLUTICASONE PROP 0.05% NASAL SPRAY 16 GM (FLONASE) PRN (12:15)
[2019-01-28] MEDS ORDERED: LORATADINE 10 MG TAB PO PRN (12:15)
[2019-01-28] MEDS ORDERED: ALBUTEROL 90 MCG/ACT 8GM HFA INHALER INH PRN (12:15)
[2019-01-28 16:00] VITALS: BP 140/89
[2019-01-28 20:00] VITALS: BP 131/90
[2019-01-28] MEDS ORDERED: MONTELUKAST 10 MG TAB PO SCH (21:00)
--- NOTE | 2019-01-28 21:21 | ECGEPIP ---
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
[2019-01-29 04:00] VITALS: BP 108/71
[2019-01-29 08:00] VITALS: BP 122/90
[2019-01-29] MEDS: ENOXAPARIN 40 MG/0.4 ML SYRINGE (J1650) SC SCH (09:00)
[2019-01-29 10:52] LABS: BASO % 0.9 % (0.0-1.0); EOS # 0.2 10^3/uL (0.0-0.50); EOS % 5.3 % (0.0-3.0); HEMATOCRIT 39.4 % (36.0-47.0); HEMOGLOBIN 12.9 g/dl (12.0-15.5); LYMPH # 1.6 10^3/uL (1.5-4.5); MEAN CORPUSCULAR HEMOGLOBIN 27.2 pg (27.0-33.0); MEAN CORPUSCULAR HGB CONC 32.7 g/dl (32.0-36.5); MEAN CORPUSCULAR VOLUME 83.1 fl (80.0-96.0); MONO # 0.4 10^3/uL (0.0-0.8); MONO % 8.9 % (0.0-5.0); NEUTROPHILS # 2.2 10^3/uL (1.8-7.7); NEUTROPHILS % 49.7 % (36.0-66.0); PLATELET COUNT, AUTOMATED 272 10^3/uL (150-450); RED BLOOD COUNT 4.74 10^6/uL (4.00-5.40); WHITE BLOOD COUNT 4.5 10^3/uL (4.0-10.0)
--- NOTE | 2019-01-29 11:09 | DS.PDOC ---
Discharge Summary General Date of Admission Jan 28, 2019 at 04:28 Date of Discharge 01/28/19 Discharge Summary PROCEDURES PERFORMED DURING STAY: [None]. ADMITTING DIAGNOSES: 1. L. arm weakness 2. Asthma DISCHARGE DIAGNOSES: 1. L. arm weakness 2. Asthma COMPLICATIONS/CHIEF COMPLAINT: Left Arm Weakness. HISTORY OF PRESENT ILLNESS: "Patient is a 28-year-old female with past medical history of asthma presents to ER with complaints of left arm weakness since last night. Patient was noted to go to bed at 11 PM with no issues and when woke up at 3 AM noted to be severely weak in the left arm with numbness to certain areas of the arm. She denies any previous history of similar occurrence. States that the numbness is spared in the forearm as well as the first 4 digits in the left hand. She denies any recent URI symptoms or any other complaints including chest pain, SOB, dizziness, blurry vision, fever, chills. " HOSPITAL COURSE: Patient remained stable through course of admission without any notable events. She has been afebrile with no leukocytosis. No evidence of infectious etiology noted, no mental status changes. Symptoms improved significantly with just supportive care and observation. CT and MRI showed no evidence of acute pathology. Only neurological deficits was numbness in L. arm and decrease sensation in several areas. 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 Since she had improved significantly, will discharge to f/u with PMD and remaining bloodwork. If ROBBIE elevated or other labs abnormal, may warrant full Rheumatalogical workup through PMD or Rheumatology. No evidence of tick bite noted, no rashes on body. Lyme is pending. Rheumatoid factor and HIV negative. DISCHARGE MEDICATIONS: Please see below. ALLERGIES: Please see below. PHYSICAL EXAMINATION ON DISCHARGE: VITAL SIGNS: Please see below. General: No acute distress, Alert Eyes: Normal sclera, EOMI, WAQAS HENT: Atraumatic, neck supple, moist mucous membranes Cardiovascular: Normal rate, normal rhythm. Pulmonary: Clear to auscultation b/l, no wheezing GI: Soft, nontender, nondistended Skin: Warm and dry Neuro: CN grossly intact. Decrease sensation in upper L. arm as well as thumb and index finger, improved. Strength 4/5 in L. arm, otherwise 5/5 in all other extremities. Psych: oriented x 3 LABORATORY DATA: Please see below. IMAGING: CT Head- IMPRESSION: No evidence of acute infarct, hemorrhage, or mass lesion. MRA Brain- Impression: No cerebrovascular occlusion or aneurysmal formation. MRI Brain- Impression: No acute ischemia or infarction. No acute intracranial abnormality. Cervical MRI- Impression: Straightening of cervical lordosis which may be positional or related to muscle spasm. No spinal cord signal abnormality. No disc herniation or significant spinal canal stenosis. ACTIVITY: [As tolerated]. DIET: Regular DISCHARGE PLAN: f/u PMD and remaining bloodwork results DISPOSITION: Home. DISCHARGE INSTRUCTIONS: f/u PMD and remaining bloodwork results ITEMS TO FOLLOWUP ON ON OUTPATIENT: Lyme serology, ROBBIE DISCHARGE CONDITION: [Stable]. TIME SPENT ON DISCHARGE: 32 minutes. Vital Signs/I&Os Vital Signs Date Time Temp Pulse Resp B/P (MAP) Pulse Ox O2 Delivery O2 Flow Rate FiO2 01/29/19 08:00 98.0 75 18 122/90 (101) 98 01/28/19 09:46 Room Air I&O- Last 24 Hours up to 6 AM 01/29/19 06:00 Intake Total 1790 ml Output Total 1200 ml Balance 590 ml Laboratory Data Labs 24H Laboratory Tests 2 01/29/19 10:41: Immature Granulocyte % (Auto) 0.2, White Blood Count 4.5, Red Blood Count 4.74, Hemoglobin 12.9, Hematocrit 39.4, Mean Corpuscular Volume 83.1, Mean Corpuscular Hemoglobin 27.2, Mean Corpuscular Hemoglobin Concent 32.7, Red Cell Distribution Width 14.3, Platelet Count 272, Neutrophils (%) (Auto) 49.7, Lymphocytes (%) (Auto) 35.0, Monocytes (%) (Auto) 8.9H, Eosinophils (%) (Auto) 5.3H, Basophils (%) (Auto) 0.9, Neutrophils # (Auto) 2.2, Lymphocytes # (Auto) 1.6, Monocytes # (Auto) 0.4, Eosinophils # (Auto) 0.2, Basophils # (Auto) 0.0, Nucleated Red Blood Cells % (auto) 0.0 CBC/BMP Laboratory Tests 01/29/19 10:41 Red Blood Count 4.74, Mean Corpuscular Volume 83.1, Mean Corpuscular Hemoglobin 27.2, Mean Corpuscular Hemoglobin Concent 32.7, Red Cell Distribution Width 14.3, Neutrophils (%) (Auto) 49.7, Lymphocytes (%) (Auto) 35.0, Monocytes (%) (Auto) 8.9 H, Eosinophils (%) (Auto) 5.3 H, Basophils (%) (Auto) 0.9, Neutrophils # (Auto) 2.2, Lymphocytes # (Auto) 1.6, Monocytes # (Auto) 0.4, Eosinophils # (Auto) 0.2, Basophils # (Auto) 0.0 Discharge Medications Scheduled Etonogestrel/Ethinyl Estradiol (Nuvaring Vaginal Ring) 1 Each Vag.ring, 1 RING PV ASDIRECTED, (Reported) SKIPPED THIS PAST CYCLE DUE TO IRREGULAR MENSES - CURRENTLY HAS MENSES AND WILL INSERT RING IN ABOUT 5 DAYS Montelukast Sodium (Singulair) 10 Mg Tablet, 10 MG PO QHS, (Reported) Scheduled PRN Albuterol Sulfate (Proair Hfa) 8.5 Gm Hfa.aer.ad, 2 PUFF INH Q6H PRN for SHORTNESS OF BREATH, (Reported) Fluticasone Propionate (Fluticasone Propionate) 16 Gm [place].susp, 2 SPRAY NA DAILY PRN for ALLERGIES, (Reported) Ibuprofen (Ibuprofen) 200 Mg Capsule, 600 MG PO QID PRN for PAIN, (Reported) Loratadine (Claritin) 10 Mg Capsule, 10 MG PO DAILY PRN for ALLERGIES, (Reported) Allergies Coded Allergies: ENVIROMENTAL (Verified Allergy, Unknown, 09/07/10) BRENDEN DESAI MD Jan 29, 2019 11:09
[2019-01-29 11:24] LABS: BLOOD UREA NITROGEN 9 MG/DL (7-18); CALCIUM LEVEL 8.5 MG/DL (8.5-10.1); CARBON DIOXIDE LEVEL 29 MEQ/L (21-32); CHLORIDE LEVEL 110 MEQ/L (98-107); CREATININE FOR GFR 0.79 MG/DL (0.55-1.30); GLOMERULAR FILTRATION RATE > 60.0 (>60); GLUCOSE, FASTING 96 MG/DL (70-100); POTASSIUM SERUM 4.1 MEQ/L (3.5-5.1); SODIUM LEVEL 142 MEQ/L (136-145)
[2019-01-30 00:06] LABS: ANTINUCLEAR ANTIBODIES DIRECT Negative (Negative); Lyme Disease IgG/IgM Antibodie <0.91 ISR (0.00-0.90); Lyme Disease IgM Ab Quantitati <0.80 index (0.00-0.79)
== END 2019-01-29 12:00 | disposition home or self-care (01) ==
LOC: M ED 04:27 → M ED INP 04:28 → M PED 11:00
PROVIDERS: ADMIT Student in an Organized Health Care Education/Training Program; ATTEND Student in an Organized Health Care Education/Training Program
DX: R53.1 Weakness (principal); J45.909 Unspecified asthma, uncomplicated; R20.0 Anesthesia of skin; R00.2 Palpitations; Z79.899 Other long term (current) drug therapy; Z79.3 Long term (current) use of hormonal contraceptives

== ENCOUNTER 2019-05-30 10:13 | Emergency (ER) | payer BC, OTHER ==
[~2019-05-30] VITALS: Ht 172.7 cm; Wt 90.0 kg
[~2019-05-30 10:13] MED LIST changes: +IBUP200C29 PO; +PROAAER10 INH
[2019-05-30] MEDS ORDERED: IBUPROFEN 800 MG TAB PO ONE (10:45)
--- NOTE | 2019-05-30 11:13 | REP ---
Clinical: Pain. Technique: AP, lateral, bilateral oblique views of the right ankle. Findings: No acute fracture or dislocation. Skeletal structures joint spaces and ankle mortise are intact and normal. Impression: No acute fracture dislocation. Electronically Signed by Gabriel Kim MD 05/30/2019 11:05 A
--- NOTE | 2019-05-30 11:14 | REP ---
Clinical: Pain. Technique: AP, lateral, bilateral oblique views right foot . Findings: The osseous structures and joint spaces are intact and normal. There is no evidence for acute fracture or dislocation. Surrounding soft tissues are unremarkable. No subcutaneous emphysema or radiodense foreign body. Impression: Age-appropriate right foot series. No acute fracture or dislocation. Electronically Signed by Gabriel Kim MD 05/30/2019 11:06 A
[2019-05-30 12:20] VITALS: BP 135/86
== END 2019-05-30 12:21 | disposition home or self-care (01) ==
LOC: M ED 10:13
DX: M79.671 Pain in right foot (principal); J45.909 Unspecified asthma, uncomplicated; Z79.51 Long term (current) use of inhaled steroids; Z79.899 Other long term (current) drug therapy

== ENCOUNTER → 2019-11-12 | Outpatient (REF) | payer OTHER ==
[2019-11-12 18:06] LABS: PERCENT SATURATION 34.6 % (13.2-45.0)
== END ==
LOC: M LAB REF 17:40
PROVIDERS: ATTEND Physician Assistant Medical
DX: R53.83 Other fatigue (principal)

== ENCOUNTER → 2019-11-15 | Outpatient (REF) | payer OTHER | LOC: M SFHCWAGY 10:48 | PROVIDERS: ATTEND Obstetrics & Gynecology | DX: Z01.419 Encounter for gynecological examination (general) (routine) without abnormal findings (principal); Z12.4 Encounter for screening for malignant neoplasm of cervix ==

== ENCOUNTER → 2020-01-06 | Outpatient (REF) | payer OTHER | LOC: M LAB REF 12:32 | PROVIDERS: ATTEND Physician Assistant Medical | DX: N92.0 Excessive and frequent menstruation with regular cycle (principal); D68.9 Coagulation defect, unspecified; Z83.2 Family history of diseases of the blood and blood-forming organs and certain disorders involving the immune mechanism ==

== ENCOUNTER → 2020-08-21 | Outpatient (REF) | payer OTHER | LOC: M LAB REF 16:07 | PROVIDERS: ATTEND Physician Assistant | DX: D23.5 Other benign neoplasm of skin of trunk (principal) ==

== ENCOUNTER → 2020-12-12 | Outpatient (REF) | payer OTHER ==
[2020-12-14 19:08] LABS: Lyme Disease IgG/IgM Antibodie <0.91 ISR (0.00-0.90); Lyme Disease IgM Ab Quantitati <0.80 index (0.00-0.79)
== END ==
LOC: M LAB REF 16:30
PROVIDERS: ATTEND Physician Assistant Medical
DX: A69.20 Lyme disease, unspecified (principal)

== ENCOUNTER → 2021-07-02 | Outpatient (REF) | LOC: M LABSMTC 09:40 | PROVIDERS: ATTEND Family Medicine | DX: Z11.52 Encounter for screening for COVID-19 (principal); Z20.822 Contact with and (suspected) exposure to COVID-19 ==

== ENCOUNTER → 2021-07-18 | Outpatient (REF) | payer OTHER | LOC: M SFHCWAGY 17:11 | PROVIDERS: ATTEND Obstetrics & Gynecology | DX: Z12.4 Encounter for screening for malignant neoplasm of cervix (principal) | CPT/HCPCS: 87624; G0123 ==

== ENCOUNTER → 2021-08-17 | Outpatient (CLI) | payer BC, OTHER ==
[~2021-08-17] MED LIST changes: +AZEL20CR TOP; +ELID1CRE11 TOP; +HYDR-3490 PO
== END ==
LOC: M LABSMTC 09:57
PROVIDERS: ATTEND Anesthesiology
DX: Z01.812 Encounter for preprocedural laboratory examination (principal); Z20.822 Contact with and (suspected) exposure to COVID-19

== ENCOUNTER 2021-08-22 06:50 | Day surgery (SDC) | payer BC, OTHER ==
[~2021-08-22] VITALS: Ht 172.7 cm; Wt 85.3 kg
[~2021-08-22 06:50] MED LIST changes: +LR 1,000 ML IV ONE
[2021-08-22] MEDS ORDERED: LIDOCAINE 2% 100MG/5ML SDV (FOR ANES.) As Ordered ONE (07:15)
[2021-08-22] MEDS ORDERED: propofoL 200 MG/20 ML VIAL As Ordered ONE ×2 (07:15→08:46)
[2021-08-22] MEDS ORDERED: fentaNYL 100 MCG/2 ML INJECTION As Ordered ONE (07:16)
[2021-08-22] MEDS ORDERED: MIDAZOLAM INJ 2MG/2ML VIAL (J2250 PER 1MG) As Ordered ONE (07:16)
[2021-08-22] MEDS ORDERED: ONDANSETRON 4MG/2ML VIAL As Ordered ONE (07:42)
[2021-08-22] MEDS ORDERED: dexameTHASONE 4 MG/ML 1ML VIAL (J1100 PER 1MG) As Ordered ONE (07:42)
[2021-08-22] MEDS ORDERED: KETOROLAC 60MG 2ML VIAL As Ordered ONE (07:42)
[2021-08-22] MEDS ORDERED: ACETAMINOPHEN 1000MG 100ML IV BTL (OFIRMEV) (J0131 PER 10MG) As Ordered ONE (07:47)
[2021-08-22 07:56] LABS: HEMATOCRIT 37.9 % (36.0-47.0); HEMOGLOBIN 12.9 g/dl (12.0-15.5); MEAN CORPUSCULAR VOLUME 79.5 fl (80.0-96.0); PLATELET COUNT, AUTOMATED 305 10^3/uL (150-450); RED BLOOD COUNT 4.77 10^6/uL (4.00-5.40); WHITE BLOOD COUNT 4.4 10^3/uL (4.0-10.0)
[2021-08-22] MEDS ORDERED: SCOPOLAMINE 1MG TRANSDERMAL PATCH As Ordered ONE (08:41)
[2021-08-22] MEDS: HYDROMORPHONE HCL 0.5 MG/ 0.5 ML SYRINGE (J1170 PER 1) IV PRN ×3 (09:13→09:38)
[2021-08-22] MEDS ORDERED: HYDROmorphone HCL 2MG/ML 1ML VIAL As Ordered ONE (09:13)
[2021-08-22] MEDS ORDERED: oxyCODONE 5MG TAB PO PRN (09:15)
[2021-08-22] MEDS ORDERED: LR 1,000 ML IV SCH (09:15)
[2021-08-22] MEDS ORDERED: fentaNYL 100 MCG/2 ML INJECTION IV PRN (09:15)
[2021-08-22] MEDS ORDERED: ONDANSETRON 4MG/2ML VIAL IV PRN (09:15)
[2021-08-22] MEDS ORDERED: PERCOCET 5MG/325MG TAB PO PRN (09:20)
[2021-08-22 10:04] VITALS: BP 136/97
[2021-08-22] MEDS ORDERED: KETOROLAC 30 MG/ML 1ML VIAL IV SCH (15:00)
== END 2021-08-22 10:33 | disposition home or self-care (01) ==
LOC: M SDC 06:50
PROVIDERS: ATTEND Obstetrics & Gynecology
DX: N85.00 Endometrial hyperplasia, unspecified (principal); N93.9 Abnormal uterine and vaginal bleeding, unspecified; R93.89 Abnormal findings on diagnostic imaging of other specified body structures; I10 Essential (primary) hypertension; I49.3 Ventricular premature depolarization; Z95.5 Presence of coronary angioplasty implant and graft; L30.9 Dermatitis, unspecified; J45.909 Unspecified asthma, uncomplicated; L71.9 Rosacea, unspecified; Z91.018 Allergy to other foods; Z79.899 Other long term (current) drug therapy; Z86.16 Personal history of COVID-19
CPT/HCPCS: 36415; 58563; 81025; 85027; 86850; 86900; 86901; 88305; J0131; J1100; J1885; J2250; J2405; J3010

== ENCOUNTER → 2022-01-03 | Outpatient (CLI) | payer BC, OTHER ==
[~2022-01-03] MED LIST changes: -LR 1,000 ML IV ONE
== END ==
LOC: M RAD 13:23
PROVIDERS: ATTEND Physician Assistant Medical
DX: R51.9 Headache, unspecified (principal)

== ENCOUNTER → 2022-02-28 | Outpatient (REF) | payer BC, OTHER ==
[2022-03-02 13:07] LABS: ANTINUCLEAR ANTIBODIES DIRECT Negative (Negative)
== END ==
LOC: M LAB REF 16:06
PROVIDERS: ATTEND Physician Assistant Medical
DX: M79.10 Myalgia, unspecified site (principal); R53.83 Other fatigue; M25.50 Pain in unspecified joint

== ENCOUNTER → 2022-08-05 | Outpatient (CLI) | payer BC, OTHER ==
[~2022-08-05] MED LIST changes: +MONT-5 PO; -SING10TA32 PO
== END ==
LOC: M LAB 16:42
PROVIDERS: ATTEND Physician Assistant Medical
DX: R53.83 Other fatigue (principal); M79.10 Myalgia, unspecified site

== ENCOUNTER 2022-08-13 08:17 | Emergency (ER) | payer OTHER, BC ==
[~2022-08-13] VITALS: Ht 172.7 cm; Wt 79.5 kg
[~2022-08-13 08:17] MED LIST changes: +RALTEGRAVIR 400 MG TAB (ISENTRESS) PO SCH
[2022-08-13 08:48] LABS: BASO % 0.7 % (0.0-1.0); EOS # 0.2 10^3/uL (0.0-0.5); EOS % 3.1 % (0.0-3.0); HEMATOCRIT 41.3 % (36.0-47.0); HEMOGLOBIN 13.7 g/dl (12.0-15.5); LYMPH # 1.8 10^3/uL (1.5-5.0); LYMPH % 29.4 % (24.0-44.0); MEAN CORPUSCULAR HEMOGLOBIN 27.2 pg (27.0-33.0); MEAN CORPUSCULAR HGB CONC 33.2 g/dl (32.0-36.5); MEAN CORPUSCULAR VOLUME 82.1 fl (80.0-96.0); MONO # 0.5 10^3/uL (0.0-0.8); MONO % 7.9 % (2.0-8.0); NEUTROPHILS # 3.6 10^3/uL (1.5-8.5); NEUTROPHILS % 58.7 % (36.0-66.0); PLATELET COUNT, AUTOMATED 297 10^3/uL (150-450); RED BLOOD COUNT 5.03 10^6/uL (4.00-5.40); WHITE BLOOD COUNT 6.1 10^3/uL (4.0-10.0)
[2022-08-13 10:13] LABS: HCG, SERUM QUALITATIVE NEGATIVE (NEGATIVE)
[2022-08-13] MEDS ORDERED: EXPOSURE KIT-ADULT 7 DAY SUPPLY PO ONE (10:20)
[2022-08-13] MEDS ORDERED: ONDA4TAB6 PO (10:22)
[2022-08-13] MEDS ORDERED: EMTR1TAB16 PO (10:22)
[2022-08-13] MEDS ORDERED: RALT40TA PO (10:22)
[2022-08-13] MEDS ORDERED: ONDANSETRON 4MG ORAL DISINTEGRATING TAB PO ONE (10:25)
[2022-08-13 10:37] VITALS: BP 126/80
[2022-08-13] MEDS ORDERED: RALTEGRAVIR 400 MG TAB (ISENTRESS) PO ONE (12:00)
[2022-08-13] MEDS ORDERED: TRUVADA 200MG/300MG TABLET PO ONE (12:00)
[2022-08-13 12:48] LABS: ALBUMIN 4.1 G/DL (3.2-5.2); ALKALINE PHOSPHATASE 65 U/L (46-116); ALT/SGPT 15 U/L (7.0-40); AST/SGOT 16 U/L (<34); BILIRUBIN,TOTAL 0.4 MG/DL (0.3-1.2); BLOOD UREA NITROGEN 15 MG/DL (9-23); CALCIUM LEVEL 9.1 MG/DL (8.5-10.1); CARBON DIOXIDE LEVEL 25 MMOL/L (20-31); CHLORIDE LEVEL 106 MMOL/L (98-107); CREATININE FOR GFR 0.65 MG/DL (0.55-1.30); GLOMERULAR FILTRATION RATE > 60.0 (>60); GLUCOSE, FASTING 101 MG/DL (60-100); SODIUM LEVEL 140 MMOL/L (136-145); TOTAL PROTEIN 7.7 G/DL (5.7-8.2)
[2022-08-13 12:49] LABS: HEPATITIS B SURFACE ANTIBODY POSITIVE (POSITIVE)
[2022-08-13 13:01] LABS: HEPATITIS B SURFACE ANTIGEN NEGATIVE (NEGATIVE)
[2022-08-13 13:14] LABS: HIV SCREEN CENTAUR EXPOSED NEGATIVE (NEGATIVE)
[2022-08-14] MEDS ORDERED: TRUVADA 200MG/300MG TABLET PO SCH
== END 2022-08-13 11:37 | disposition home or self-care (01) ==
LOC: M ED 08:17
DX: S61.233A Puncture wound without foreign body of left middle finger without damage to nail, initial encounter (principal); W46.1XXA Contact with contaminated hypodermic needle, initial encounter; Y92.239 Unspecified place in hospital as the place of occurrence of the external cause; Y93.F9 Activity, other caregiving; Y99.0 Civilian activity done for income or pay; Z79.899 Other long term (current) drug therapy

== ENCOUNTER → 2022-09-16 | Outpatient (CLI) | payer BC, OTHER ==
[~2022-09-16] MED LIST changes: +EMTR1TAB16 PO; +FLUT50SP17; -FLUTISP; +ONDA4TAB6 PO; +RALT40TA PO; -RALTEGRAVIR 400 MG TAB (ISENTRESS) PO SCH
== END ==
LOC: M RAD 09:51
PROVIDERS: ATTEND Internal Medicine
DX: M79.642 Pain in left hand (principal)

== ENCOUNTER → 2022-11-11 | Outpatient (REF) ==
[~2022-11-11] MED LIST changes: +ETON1VAG7 PV; -NUVAMIS2 PV
== END ==
LOC: M EMP 09:48
PROVIDERS: ATTEND Family Medicine
DX: Z11.52 Encounter for screening for COVID-19 (principal); U07.1 COVID-19

== ENCOUNTER 2023-02-15 20:49 | Emergency (ER) | payer BC, OTHER ==
[~2023-02-15] VITALS: Ht 172.7 cm; Wt 82.1 kg
[2023-02-15 23:17] LABS: RSV AMPLIFICATION NEGATIVE (NEGATIVE)
[2023-02-15 23:31] LABS: BASO % 0.5 % (0.0-1.0); EOS # 0.3 10^3/uL (0.0-0.5); EOS % 4.3 % (0.0-3.0); HEMATOCRIT 35.2 % (36.0-47.0); HEMOGLOBIN 12.1 g/dl (12.0-15.5); LYMPH # 2.7 10^3/uL (1.5-5.0); LYMPH % 33.8 % (24.0-44.0); MEAN CORPUSCULAR HGB CONC 34.4 g/dl (32.0-36.5); MEAN CORPUSCULAR VOLUME 81.5 fl (80.0-96.0); MONO % 12.5 % (2.0-8.0); NEUTROPHILS # 3.8 10^3/uL (1.5-8.5); NEUTROPHILS % 48.6 % (36.0-66.0); PLATELET COUNT, AUTOMATED 255 10^3/uL (150-450); RED BLOOD COUNT 4.32 10^6/uL (4.00-5.40); WHITE BLOOD COUNT 7.9 10^3/uL (4.0-10.0)
[2023-02-15] MEDS ORDERED: ISOVUE-370 76% 100ML VIAL As Ordered ONE (23:39)
[2023-02-16] MEDS ORDERED: AMOX875T2 PO (01:36)
[2023-02-16] MEDS ORDERED: AUGMENTIN 875 MG TAB PO ONE (01:40)
[2023-02-16] MEDS ORDERED: POTASSIUM CHLORIDE 10MEQ SR TABLET PO ONE ×2 (01:40)
[2023-02-16 01:51] VITALS: BP 114/74; TEMP 97.6; O2SAT 100
== END 2023-02-16 01:53 | disposition home or self-care (01) ==
LOC: M ED 20:49
DX: R59.9 Enlarged lymph nodes, unspecified (principal); E87.6 Hypokalemia; I10 Essential (primary) hypertension; F10.10 Alcohol abuse, uncomplicated; Z91.018 Allergy to other foods; Z91.048 Other nonmedicinal substance allergy status; Z79.52 Long term (current) use of systemic steroids; Z79.2 Long term (current) use of antibiotics; Z79.899 Other long term (current) drug therapy
CPT/HCPCS: 36415; 70491; 80047; 83735; 84702; 85025; 87631; 87880; 99284; Q9967

== ENCOUNTER → 2023-03-05 | Outpatient (REF) | payer BC, OTHER ==
[~2023-03-05] MED LIST changes: +AMOX875T2 PO
== END ==
LOC: M SFHCWAGY 17:50
PROVIDERS: ATTEND Obstetrics & Gynecology
DX: Z12.4 Encounter for screening for malignant neoplasm of cervix (principal)
CPT/HCPCS: 87624; G0123

== ENCOUNTER → 2023-03-05 | Outpatient (REF) | LOC: M EMP 09:31 | PROVIDERS: ATTEND Family Medicine | DX: Z11.52 Encounter for screening for COVID-19 (principal) ==

== ENCOUNTER → 2023-06-09 | Outpatient (CLI) | payer BC, OTHER ==
[~2023-06-09] MED LIST changes: -FLUT50SP17; +FLUTISP
== END ==
LOC: M RAD 16:37
PROVIDERS: ATTEND Physician Assistant Medical
DX: E04.1 Nontoxic single thyroid nodule (principal)

== ENCOUNTER → 2023-08-01 | Outpatient (REF) | payer BC, OTHER | LOC: M LAB REF 16:31 | PROVIDERS: ATTEND Physician Assistant | DX: J02.9 Acute pharyngitis, unspecified (principal) ==

== ENCOUNTER → 2023-08-14 | Outpatient (REF) | payer BC, OTHER | LOC: M LAB REF 16:16 | PROVIDERS: ATTEND Physician Assistant | DX: B34.9 Viral infection, unspecified (principal) ==

== ENCOUNTER → 2023-11-14 | Outpatient (REF) | payer BC ==
[~2023-11-14] MED LIST changes: +ONDA-282 PO; -ONDA4TAB6 PO
[2023-11-15 08:02] LABS: BVAB 2 NEGATIVE (NEGATIVE); CANDIDA ALBICANS NAA DETECTED (NOT DETECTED); CANDIDA GLABRATA NAA NOT DETECTED (NOT DETECTED); TRICH VAG BY NAA NOT DETECTED (NOT DETECTED)
[2023-11-15 10:37] LABS: CHLAMYDIA TRACHOMATIS NAA NOT DETECTED (NOT DETECTED); Neisseria gonorrhoeae NAA NOT DETECTED (NOT DETECTED)
== END ==
LOC: M PLALAB 11:23
PROVIDERS: ATTEND Obstetrics & Gynecology
DX: N76.0 Acute vaginitis (principal)

== ENCOUNTER → 2024-01-07 | Outpatient (REF) | LOC: M EMP 10:35 | PROVIDERS: ATTEND Family Medicine | DX: Z11.52 Encounter for screening for COVID-19 (principal) ==

== ENCOUNTER → 2024-02-04 | Outpatient (CLI) | payer BC | LOC: M WHC 08:56 | PROVIDERS: ATTEND Obstetrics & Gynecology | DX: N63.20 Unspecified lump in the left breast, unspecified quadrant (principal) | CPT/HCPCS: 76641; 77066; G0279 ==

== ENCOUNTER → 2024-04-13 | Outpatient (REF) | payer BC | LOC: M PLALAB 09:47 | PROVIDERS: ATTEND Obstetrics & Gynecology | DX: Z12.4 Encounter for screening for malignant neoplasm of cervix (principal); Z53.9 Procedure and treatment not carried out, unspecified reason ==

== ENCOUNTER → 2024-05-18 | Outpatient (REF) | payer BC | LOC: M SFHCWAGY 17:41 | PROVIDERS: ATTEND Obstetrics & Gynecology | DX: Z01.419 Encounter for gynecological examination (general) (routine) without abnormal findings (principal) | CPT/HCPCS: 87624; G0123 ==

== ENCOUNTER 2024-08-23 07:23 | Day surgery (SDC) | payer BC ==
[~2024-08-23] VITALS: Ht 172.7 cm; Wt 83.0 kg
[~2024-08-23 07:23] MED LIST changes: +ALBU8.5H; +ALLE180T33 PO; +L-NO1TBD4; +LIDOCAINE 2% 100MG/5ML SDV (FOR ANES.) As Ordered ONE; +ONDANSETRON 4MG 2ML VIAL As Ordered ONE; +ROCURONIUM BROMIDE 50MG/5ML VIAL As Ordered ONE; +SUMA50TA2; +propofoL 200 MG/20 ML VIAL As Ordered ONE
[2024-08-23] MEDS ORDERED: LR 1,000 ML IV SCH ×3 (07:50→11:05)
[2024-08-23] MEDS ORDERED: dexmedeTOMIDine (4MCG/ML)200MCG/50ML BTL (PRECEDEX) As Ordered ONE (08:37)
[2024-08-23] MEDS: SCOPOLAMINE 1MG TRANSDERMAL PATCH TOP ONE (08:40)
[2024-08-23] MEDS ORDERED: ACETAMINOPHEN 1000MG/100ML IV BAG As Ordered ONE (09:13)
[2024-08-23] MEDS ORDERED: fentaNYL 100 MCG/2 ML INJECTION As Ordered ONE (09:14)
[2024-08-23] MEDS ORDERED: MIDAZOLAM INJ 2MG/2ML VIAL As Ordered ONE (09:16)
[2024-08-23] MEDS: COCAINE 4% 4ML NASAL SOLUTION BTL As Ordered ONE (10:00)
[2024-08-23] MEDS ORDERED: SUGAMMADEX SODIUM 500 MG/5 ML VIAL (BRIDION) As Ordered ONE (10:12)
[2024-08-23] MEDS: LIDOCAINE W/EPINEPHRINE 1% 20ML VIAL As Ordered ONE (10:20)
[2024-08-23] MEDS: OXYMETAZOLINE 0.05% NASAL SPRAY As Ordered ONE (10:20)
[2024-08-23] MEDS ORDERED: HYDROMORPHONE HCL 0.5 MG/ 0.5 ML SYRINGE IV PRN (10:40)
[2024-08-23] MEDS ORDERED: ONDANSETRON 4MG 2ML VIAL IV PRN (10:40)
[2024-08-23] MEDS ORDERED: fentaNYL 100 MCG/2 ML INJECTION IV PRN (10:40)
[2024-08-23] MEDS ORDERED: ANEXSIA, NORCO 7.5MG/325MG TABLET(HYDROCODONE/APAP) PO PRN (11:05)
[2024-08-23] MEDS: oxyCODONE 5MG TAB PO PRN (12:00)
[2024-08-23 13:50] VITALS: BP 168/89; TEMP 98.1; O2SAT 97
== END 2024-08-23 13:57 | disposition home or self-care (01) ==
LOC: M SDC 07:23
PROVIDERS: ATTEND Otolaryngology
DX: J34.2 Deviated nasal septum (principal); J34.3 Hypertrophy of nasal turbinates; I10 Essential (primary) hypertension; J45.909 Unspecified asthma, uncomplicated; G43.909 Migraine, unspecified, not intractable, without status migrainosus; Z79.899 Other long term (current) drug therapy; Z79.3 Long term (current) use of hormonal contraceptives; Z91.018 Allergy to other foods
CPT/HCPCS: 30140; 30520; 81025; C9143; J0131; J1100; J2250; J2405; J3010

== ENCOUNTER → 2025-04-13 | Outpatient (REF) | payer OTHER, BC ==
[~2025-04-13] MED LIST changes: -LIDOCAINE 2% 100MG/5ML SDV (FOR ANES.) As Ordered ONE; -ONDANSETRON 4MG 2ML VIAL As Ordered ONE; -ROCURONIUM BROMIDE 50MG/5ML VIAL As Ordered ONE; -propofoL 200 MG/20 ML VIAL As Ordered ONE
[2025-04-13 15:42] LABS: C REACTIVE PROTEIN QUANTITATIV < 0.50 MG/DL (<1.0)
[2025-04-13 16:48] LABS: CORTISOL AM 6.8 UG/DL (4.3-22.4)
[2025-04-15 20:37] LABS: LYME TOTAL ANTIBODY CIA <= 0.90 Index (<=0.90)
== END ==
LOC: M LAB REF 14:27
PROVIDERS: ATTEND Physician Assistant Medical
DX: M25.50 Pain in unspecified joint (principal); R53.83 Other fatigue; I10 Essential (primary) hypertension; M15.9 Polyosteoarthritis, unspecified